=== PATIENT | male | born 1940 | race Caucasian/White ===

== ENCOUNTER 2018-05-24 13:09 | Outpatient (CLI) | payer OTHER ==
[~2018-05-24 13:09] MED LIST: AVAPRO150 MG
== END 2018-05-24 13:13 | disposition home or self-care (01) ==
LOC: MRI 13:09
DX: M23.304 Other meniscus derangements, unspecified medial meniscus, left knee (principal)
CPT/HCPCS: 73718

== ENCOUNTER 2024-10-15 22:47 | Emergency (ER) | payer OTHER ==
[~2024-10-15] VITALS: Ht 170.2 cm; Wt 65.8 kg
[2024-10-16] MEDS ORDERED: 0.9 % SODIUM CHLORIDE 500 ML IV ONE (00:30)
[2024-10-16 01:02] LABS: BASO % 0.2 % (0.1-1.2); HEMATOCRIT 32.2 % (40.1-51.0); HEMOGLOBIN 11.1 g/dL (13.7-17.5); LYMPH # 0.65 (1.18-3.74); LYMPH % 3.5 % (19.3-53.1); MEAN CORPUSCULAR HEMOGLOBIN 29.5 pg (25.6-32.2); MONO # 1.09 (0.24-0.82); MONO % 5.9 % (4.7-12.5); NEUT # 16.71 (1.56-6.13); PLATELET COUNT 316 K/uL (163-369); RED BLOOD COUNT 3.76 M/uL (4.63-6.08); RED CELL DISTRIBUTION WIDTH 15.8 % (11.6-14.4)
[2024-10-16 01:57] LABS: ALBUMIN 3.1 gm/dL (3.4-5.0); BILIRUBIN TOTAL 1.63 mg/dL (0.3-1.2); CALCIUM 8.9 mg/dL (8.5-10.1); CREATININE SERUM 1.16 mg/dL (0.70-1.30); GFR 59.84; GLOBULINA 3.2 G/DL (2.4-3.5); POTASSIUM 3.74 mEq/L (3.5-5.1); TOTAL PROTEIN 6.3 gm/dL (6.4-8.2)
[2024-10-16 02:41] LABS: URINE APPEARANCE Clear; URINE BILIRRUBIN Negative (NEGATIVE); URINE BLOOD Negative; URINE COLOR Yellow; URINE GLUCOSE Negative (NEGATIVE); URINE KETONE Trace (NEGATIVE); URINE LEUKOCYTE Negative; URINE NITRATE Negative; URINE PROTEIN Negative (NEGATIVE); URINE UROBILINOGEN 0.2 E.U./dl
[2024-10-16 02:45] LABS: URINE BACTERIA 4.8 uL (0.0-1933); URINE EPITHELIAL CELLS 1.4 uL (0.0-38.8); URINE RBC 2.2 uL (0.0-20.8)
[2024-10-16 02:56] LABS: URINE WBC 0.7 uL (0.0-23.2)
[2024-10-16 03:54] LABS: BASO % 0.1 % (0.1-1.2); HEMATOCRIT 33.4 % (40.1-51.0); HEMOGLOBIN 11.4 g/dL (13.7-17.5); LYMPH # 0.88 (1.18-3.74); LYMPH % 5.1 % (19.3-53.1); MEAN CORPUSCULAR HEMOGLOBIN 29.3 pg (25.6-32.2); MONO # 0.81 (0.24-0.82); MONO % 4.7 % (4.7-12.5); NEUT # 15.62 (1.56-6.13); NEUT % 89.7 % (34.0-71.1); PLATELET COUNT 346 K/uL (163-369); RED BLOOD COUNT 3.89 M/uL (4.63-6.08)
== END 2024-10-16 04:13 ==
LOC: ER 22:47
PROVIDERS: General Practice
DX: R53.1 Weakness (principal); R11.0 Nausea; I95.89 Other hypotension
CPT/HCPCS: 36415; 96365; 96366; 99282; J7042